=== PATIENT | female | born 1960 | race Caucasian/White ===

== ENCOUNTER → 2017-05-29 | Outpatient (CLI) | payer BC ==
[~2017-05-29] MED LIST: DULO60CA6 PO; LVT.05T PO; MTF500T PO; PRAM0.252 PO
--- NOTE | 2017-05-29 13:23 | Diagnostic Imaging Report ---
INDICATION: Routine screening. COMPARISON: 03/07/2016 and 01/20/2015. TECHNIQUE: Screening digital mammography was performed bilaterally with a Computer Aided Detection (CAD) system. FINDINGS: Both breasts are heterogeneously dense, limiting the sensitivity of mammography. The previously noted subpectoral breast implants have been removed since the prior exam. No dominant mass or malignant appearing microcalcifications are seen. There are scattered benign-appearing calcifications bilaterally. The axillae are unremarkable. IMPRESSION: No mammographic features suspicious for malignancy are identified. ACR BI-RADS Category 2: Benign findings. Result letter will be mailed to the patient. Note: At least 10% of breast cancer is not imaged by mammography. Dictated by: Dictated on workstation # [id number]
== END ==
LOC: RAD 09:54
PROVIDERS: ATTEND Family Medicine
DX: Z12.31 Encounter for screening mammogram for malignant neoplasm of breast (principal)
CPT/HCPCS: 77067

== ENCOUNTER → 2018-08-19 | Outpatient (CLI) | payer BC ==
--- NOTE | 2018-08-19 14:02 | Diagnostic Imaging Report ---
INDICATION: Routine screening. COMPARISON: 05/29/2017 and 03/07/2016. TECHNIQUE: 2D and 3D bilateral screening mammography was performed with CAD. FINDINGS: Both breasts are heterogeneously dense, limiting the sensitivity of mammography. Scattered benign calcifications are noted. No mass or malignant appearing microcalcifications are seen. The axillae are unremarkable. IMPRESSION: No mammographic features suspicious for malignancy are identified. ACR BI-RADS Category 2: Benign findings. Result letter will be mailed to the patient. Note: At least 10% of breast cancer is not imaged by mammography. Dictated by: Dictated on workstation # [id number]
== END ==
LOC: RAD 08:47
PROVIDERS: ATTEND Family Medicine
DX: Z12.31 Encounter for screening mammogram for malignant neoplasm of breast (principal)
CPT/HCPCS: 77067

== ENCOUNTER → 2021-08-09 | Outpatient (CLI) | payer OTHER ==
--- NOTE | 2021-08-09 14:27 | Diagnostic Imaging Report ---
INDICATION: Pneumonia Frontal and lateral views of the chest demonstrate clear lungs bilaterally. The heart is normal. There is no pneumothorax but osseous structures are normal. IMPRESSION: Negative chest Dictated by: Dictated on workstation # [id number]
== END ==
LOC: RAD 12:24
PROVIDERS: ATTEND Family Medicine
DX: J18.9 Pneumonia, unspecified organism (principal)
CPT/HCPCS: 71046

== ENCOUNTER 2022-06-20 05:38 | Outpatient (CLI) | payer OTHER ==
[~2022-06-20] VITALS: Ht 170.2 cm; Wt 79.4 kg
[2022-06-20] MEDS ORDERED: TIMO5DRO27 OP (09:50)
[2022-06-20] MEDS ORDERED: PANT40TA2 PO (09:50)
[2022-06-20] MEDS ORDERED: FLUO40CA12 PO (09:50)
[2022-06-20] MEDS ORDERED: MELO15TA39 PO (09:50)
== END 2022-06-20 11:06 | disposition home or self-care (01) ==
LOC: PREOP 05:38
PROVIDERS: ATTEND Surgery
DX: Z01.818 Encounter for other preprocedural examination (principal)

== ENCOUNTER 2022-06-27 12:10 | Day surgery (SDC) | payer OTHER ==
[~2022-06-27] VITALS: Ht 170 cm; Wt 79.4 kg
[~2022-06-27 12:10] MED LIST changes: +FLUO40CA12 PO; +MELO15TA39 PO; +PANT40TA2 PO; +TIMO5DRO27 OP
[2022-06-27] MEDS ORDERED: LACTATED RINGERS 1,000 ML IV STA (12:14)
[2022-06-27] MEDS ORDERED: LIDOCAINE JELLY 2% 6 ML SYRINGE MM PRN (12:15)
--- NOTE | 2022-06-27 12:18 | Progress Note-Pre Operative ---
Pre-Operative Progress Note Date of Available H&P: Jun 27, 2022 Date H&P Reviewed: Jun 27, 2022 Time H&P Reviewed: 12:00 History & Physical: No changes noted Pre-Operative Diagnosis: screening o JOEY GUTIERREZ MD Jun 27, 2022 12:18
--- NOTE | 2022-06-27 12:19 | Discharge Inst-Surgical ---
D/C Lap Instructions-MATT Follow Up Activity as tolerated High Fiber Diet 25g or more per day Avoid Alcohol, Caffeine, Spicy [place] and Acid foods. Drink 64 fluid oz or more of fluids per day. Symptoms to Report: Fever over 101 degree F, Nausea/Vomiting If any problems/questions: Contact your physician or go to Emergency Room JOEY GUTIERREZ MD Jun 27, 2022 12:19
[2022-06-27 12:20] VITALS: BP 122/83
[2022-06-27] MEDS ORDERED: PROPOFOL INJECTION 50 ML IV ONE (12:25)
[2022-06-27] MEDS ORDERED: ONDANSETRON 4 MG (ZOFRAN) ORAL DISSOLVE TAB PO PRN (12:30)
[2022-06-27] MEDS ORDERED: ONDANSETRON 4 MG/2 ML (SDV) Z0FRAN IVP PRN (12:30)
[2022-06-27] MEDS ORDERED: LIDOCAINE JELLY 2% 6 ML SYRINGE ONE (12:42)
[2022-06-27 13:23] VITALS: BP 91/50
[2022-06-27 13:25] VITALS: BP 109/54
--- NOTE | 2022-06-27 13:26 | Progress Note-Post Operative ---
Post-Operative Progess Note Surgeon (s)/Entomology Professor (s) Surgeon JOEY GUTIERREZ MD Entomology Professor: none Pre-Operative Diagnosis screening colo Post-Operative Diagnosis chronic stage 2 ext and int hemorrhoids. Procedure & Operative Findings Date of Procedure 06/27/22 Procedure Performed/Findings colonoscopy Anesthesia Type mac Estimated Blood Loss Estimated blood loss (mL): minimal Specimens/Packing Specimens Removed none JOEY GUTIERREZ MD Jun 27, 2022 13:26
[2022-06-27 13:55] VITALS: BP 109/54
--- NOTE | 2022-06-27 14:57 | Anesthesia-General Post-Op ---
MAC Patient Condition Mental Status/LOC: Same as Preop Cardiovascular: Satisfactory Nausea/Vomiting: Absent Respiratory: Satisfactory Pain: Controlled Complications: Absent Post Op Complications Complications None Follow Up Care/Instructions Patient Instructions None needed. Anesthesiology Discharge Order Discharge Order Patient is doing well, no complaints, stable vital signs, no apparent adverse anesthesia problems. No complications reported per nursing. URIEL MARTÍNEZ CRNA Jun 27, 2022 14:57
--- NOTE | 2022-06-27 17:12 | OPERATIVE REPORT ---
DATE OF SERVICE: 06/27/2022 ATTENDING PRIMARY CARE PHYSICIAN: Sonia Cedillo MD PREOPERATIVE DIAGNOSIS: Screening colonoscopy. POSTOPERATIVE DIAGNOSES: Mild chronic stage II external and internal hemorrhoids. PROCEDURE: Colonoscopy. SURGEON: Joey Gutierrez MD ANESTHESIA: Monitored anesthesia care. ESTIMATED BLOOD LOSS: Minimal. FINDINGS: Mild chronic stage II external and internal hemorrhoids. DISPOSITION: The patient tolerated the procedure well. INDICATIONS: The patient is a 61-year-old female known to us. She has a history of morbid obesity and medical comorbidities including non-insulin dependent diabetes and depression. She is status post laparoscopic adjustable gastric band placement with AP standard band on 08/09/2014 and has done well with weight loss and maintenance. She is in need of another screening colonoscopy. Her last one was 05/2012. A small hyperplastic polyp was the only thing identified. She states no major issues with diarrhea, nor constipation as well as no red blood per rectum, nor any dark tarry stools. She also does not report any family history of colon cancer. DESCRIPTION OF PROCEDURE: The patient was brought to the endoscopy suite and laid in the left lateral decubitus position. After adequate IV pain and sedative medications and monitored anesthesia care, a digital rectal examination was performed. Mild chronic stage II external and internal hemorrhoids were identified, which were not actively edematous nor inflamed and no bleeding. Normal sphincter tone was felt and there were no palpable masses. The endoscope was then intubated into the anus, rectum gently insufflated. The endoscope was then advanced through the valves of [place] of the rectum with no polyps or any neoplasms identified. Through the sigmoid colon, no diverticulosis identified. The endoscope was then advanced to the remainder of the descending, transverse and ascending colon to the cecum, which were normal. There were no polyps or any neoplasms identified. The endoscope was then slowly withdrawn while taking a second look and suctioning of residual air with no additional findings. The patient tolerated the procedure well. We will recommend continued medical management with a high-fiber diet with at least 25 grams of fiber daily as well as significant amounts of water to promote soft consistency stools on a daily basis. If she is asymptomatic, she does not need another colonoscopy for another 10 years. Job ID: [id number] DocumentID: [id number] Dictated Date: 06/27/2022 13:20:28 Learning Developer Date: 06/27/2022 17:10:00 Dictated By: JOEY GUTIERREZ MD
== END 2022-06-27 13:55 | disposition home or self-care (01) ==
LOC: ENDO 12:10
PROVIDERS: ATTEND Surgery
DX: Z12.11 Encounter for screening for malignant neoplasm of colon (principal); K64.1 Second degree hemorrhoids; E11.9 Type 2 diabetes mellitus without complications; F32.A Depression, unspecified; Z86.010 Personal history of colon polyps